=== PATIENT | female | born 1960 | race Asian ===

== ENCOUNTER 2020-09-13 11:10 | Day surgery (SDC) | payer OTHER ==
[~2020-09-13] VITALS: Ht 160 cm; Wt 72.6 kg
[2020-09-13] MEDS ORDERED: MIDAZOLAM 5 MG/5 ML VIAL ONE (12:24)
[2020-09-13] MEDS ORDERED: diphenhydrAMINE 50 MG/ML VIAL ONE (12:24)
[2020-09-13] MEDS ORDERED: fentaNYL citrate 0.05 MG/ML VIAL ONE (12:24)
[2020-09-13] MEDS ORDERED: SIMETHICONE 40 MG/0.6 ML PO ONE (12:55)
[2020-09-13] MEDS ORDERED: fentaNYL citrate 0.05 MG/ML VIAL IVP ONE (14:20)
[2020-09-13] MEDS ORDERED: MIDAZOLAM 2 MG/2 ML VIAL IVP ONE (14:20)
== END 2020-09-13 13:48 | disposition home or self-care (01) ==
LOC: MDS 11:10 → MMU 11:11 → MDS 13:48
PROVIDERS: ATTEND Internal Medicine Gastroenterology
DX: Z12.11 Encounter for screening for malignant neoplasm of colon (principal); D12.4 Benign neoplasm of descending colon; K30 Functional dyspepsia; I10 Essential (primary) hypertension; E11.9 Type 2 diabetes mellitus without complications; E78.5 Hyperlipidemia, unspecified; K31.9 Disease of stomach and duodenum, unspecified; Z80.0 Family history of malignant neoplasm of digestive organs; Z86.010 Personal history of colon polyps; Z79.84 Long term (current) use of oral hypoglycemic drugs; Z79.899 Other long term (current) drug therapy
CPT/HCPCS: 43239; 45385; J2250; J3010; 88305; 88312; 88313; 88342; J1200